=== PATIENT | female | born 1960 | race Caucasian/White ===

== ENCOUNTER 2017-09-11 07:08 | Emergency (ER) | payer OTHER ==
[~2017-09-11] VITALS: Ht 157.5 cm; Wt 65.8 kg
[~2017-09-11 07:08] MED LIST: CRUTCH3 USE; ESTR.05TPW; HYDACE5 PO; NAPR500 PO; PROM25 PO
[2017-09-11] MEDS ORDERED: Prednisone20 MG PO (09:14)
[2017-09-11] MEDS ORDERED: ALBU90OI6 INH (09:14)
[2017-09-11] MEDS ORDERED: BENZ100A PO (09:14)
== END 2017-09-11 09:51 | disposition home or self-care (01) ==
LOC: ER 07:08
DX: J20.9 Acute bronchitis, unspecified (principal); Z88.5 Allergy status to narcotic agent; Z87.891 Personal history of nicotine dependence
CPT/HCPCS: 71046; 94640; 99283

== ENCOUNTER → 2018-04-21 | Outpatient (CLI) | payer BC ==
[~2018-04-21] MED LIST changes: +ALBU90OI6 INH; +BENZ100A PO; +Multiple Vitam1 EACH PO; +Prednisone20 MG PO; +VITAMIN D35000 UNIT PO
== END | disposition home or self-care (01) ==
LOC: PLD 11:01 → LAB SHORT 11:01
DX: L85.8 Other specified epidermal thickening (principal)
CPT/HCPCS: 88305